=== PATIENT | female | born 1985 | race Caucasian/White ===

== ENCOUNTER 2020-08-26 22:03 | Emergency (ER) | payer OTHER ==
[~2020-08-26] VITALS: Ht 154.9 cm; Wt 63.5 kg
[2020-08-27] MEDS ORDERED: ZOFRAN8 MG PO (03:41)
[2020-08-27] MEDS ORDERED: PEPCID40 MG PO (03:41)
== END 2020-08-27 03:49 | disposition home or self-care (01) ==
LOC: ER 22:03
DX: K29.70 Gastritis, unspecified, without bleeding (principal)